=== PATIENT | female | born 1955 | race Caucasian/White ===

== ENCOUNTER 2018-08-10 18:30 | Emergency (ER) | payer OTHER ==
[2018-08-10] MEDS: KETOROLAC 30 MG INJ IM (21:57)
[2018-08-10 22:21] LABS: ADD UMIC YES; UR ASCORBIC ACID NEGATIVE (NEGATIVE); UR BACTERIA FEW /HPF (NONE SEEN); UR BILIRUBIN (Dip) NEGATIVE (NEGATIVE); UR BLOOD (Dip) 2+ mg/dL (NEGATIVE); UR CLARITY SLIGHTLY CLOUDY (CLEAR); UR COLOR YELLOW (YELLOW); UR GLUCOSE (Dip) NEGATIVE (NEGATIVE); UR KETONES (Dip) NEGATIVE (NEGATIVE); UR LEUKOCYTE ESTERASE (Dip) NEGATIVE Leu/ul (NEGATIVE); UR MUCUS MODERATE /HPF (NONE SEEN); UR NITRITE (Dip) NEGATIVE (NEGATIVE); UR RBC 7 /HPF (0-5); UR SPECIFIC GRAVITY (Dip) 1.019 (1.003-1.030); UR SQUAMOUS EPITHELIAL CELL MODERATE /HPF (FEW); UR TOTAL PROTEIN (Dip) 2+ mg/dl (NEGATIVE); UR UROBILINOGEN (Dip) 1+ mg/dL (NEGATIVE); UR WBC 9 /HPF (0-5)
[2018-08-10] MEDS: CEFTRIAXONE 1 GM INJ IM (23:40)
== END 2018-08-10 23:52 | disposition home or self-care (01) ==
LOC: FTE 18:30
DX: N30.00 Acute cystitis without hematuria (principal); Z87.891 Personal history of nicotine dependence
CPT/HCPCS: 81001; 87400; 96372; 99284-25

== ENCOUNTER 2018-09-23 10:12 | Day surgery (SDC) | payer OTHER ==
[2018-09-23] MEDS ORDERED: FENTAnyl 50 MCG/ML VIAL (11:56)
[2018-09-23] MEDS ORDERED: MIDAZOLAM 1 MG/ML 2 ML INJ ×3 (11:56)
== END 2018-09-23 13:22 | disposition home or self-care (01) ==
LOC: GIL 10:12
DX: Z12.11 Encounter for screening for malignant neoplasm of colon (principal); K57.30 Diverticulosis of large intestine without perforation or abscess without bleeding; D12.3 Benign neoplasm of transverse colon; K62.1 Rectal polyp
CPT/HCPCS: 45380; 88305

== ENCOUNTER 2018-11-02 09:56 | Inpatient (IN) | payer OTHER ==
[2018-11-02 13:01] LABS: ABNORMAL IP MESSAGE 1; HEMATOCRIT 20.5 % (37.0-47.0); MEAN CORPUSCULAR HEMOGLOBIN 31.3 pg (29.0-33.0); MEAN CORPUSCULAR HGB CONC 31.7 g/dl (32.0-37.0); MEAN CORPUSCULAR VOLUME 98.6 fl (82.0-101.0); NUCLEATED RED BLOOD CELLS% 0.2 /100WBC (0.0-0.0); PLATELET COUNT 71 10^3/UL (140-415); RED BLOOD COUNT 2.08 10^6/ul (4.20-5.40); RED CELL DISTRIBUTION WIDTH 19.1 % (11.5-14.5)
[2018-11-02 13:01] LABS: WHITE BLOOD COUNT 63.3 10^3/ul (4.8-10.8)
[2018-11-02 13:08] LABS: HEMOGLOBIN 6.5 g/dl (12.0-16.0)
[2018-11-02 13:09] LABS: ADD MAN DIFF? YES; POSITIVE DIFF @See below
[2018-11-02 13:12] LABS: ALANINE AMINOTRANSFERASE 14 IU/L (13-69); ALBUMIN 3.9 g/dl (3.3-4.9); ALBUMIN/GLOBULIN RATIO 1.08; ALKALINE PHOSPHATASE 68 IU/L (42-121); ANION GAP 8 (5-13); ASPARTATE AMINO TRANSFERASE 33 IU/L (15-46); BILIRUBIN,INDIRECT 0.2 mg/dl (0-1.1); BILIRUBIN,TOTAL 0.2 mg/dl (0.2-1.3); BLOOD UREA NITROGEN 12 mg/dl (7-20); CARBON DIOXIDE 32 mmol/L (21-31); CHLORIDE 99 mmol/L (97-110); CREATININE 0.63 mg/dl (0.44-1.00); Estimated GFR > 60 mL/min (>60); GLUCOSE 107 mg/dl (70-220); POTASSIUM 4.1 mmol/L (3.5-5.1); SODIUM 139 mmol/L (135-144); TOTAL PROTEIN 7.5 g/dl (6.1-8.1)
[2018-11-02 13:24] LABS: B-TYPE NATRIURETIC PEPTIDE 253 PG/ML (0-125); TROPONIN-I 0.039 ng/ml (0.000-0.120)
[2018-11-02] MEDS ORDERED: ACETAMINOPHEN 325 MG TAB PO (14:00)
[2018-11-02] MEDS ORDERED: ONDANSETRON 4 MG INJ IV (14:00)
[2018-11-02] MEDS ORDERED: NACL 0.9% 3 ML SYG IV (14:30)
[2018-11-02] MEDS ORDERED: ACETAMINOPHEN 650 MG SUPP PR (14:30)
[2018-11-02] MEDS ORDERED: DOCUSATE SODIUM 100 MG CAP PO (14:30)
[2018-11-02] MEDS ORDERED: MAGNESIUM HYDROXIDE 30ML CUP PO (14:30)
[2018-11-02 14:42] LABS: RETICULOCYTE COUNT # 0.009 X10^6 (0.020-0.110); RETICULOCYTE COUNT % 0.4 % (0.5-1.5)
[2018-11-02 14:42] LABS: RETICULOCYTE RBC 2.04
[2018-11-02 14:50] LABS: IRON 228 ug/dl (35-150)
[2018-11-02 14:59] LABS: % IRON SATURATION 90 % SAT (22-52); TOTAL IRON BINDING CAPACITY 253 ug/dl (241-421)
[2018-11-02 15:01] LABS: ANISOCYTOSIS 3+ (0-0); BAND NEUTROPHILS #M 1.8 10^3/ul (0.0-0.6); BAND NEUTROPHILS % (M) 3 % (0-4); GIANT THROMBO% (M) 1 % (0-0); LYMPHOCYTES #M 15.1 10^3/ul (0.8-2.9); LYMPHOCYTES % (M) 24 % (15-51); METAMYELOCYTES #M 0.6 10^3/ul (0.0-0.0); METAMYELOCYTES %M 1 % (0-0); MICROCYTOSIS 3+ (0-0); MONOCYTE #M 3.1 10^3/ul (0.3-0.9); MONOCYTES % (M) 5 % (0-11); MYELOCYTES #M 1.8 10^3/ul (0.0-0.0); MYELOCYTES % (M) 3 % (0-0); PLATELET ESTIMATE SIG DECREASED; POIKILOCYTOSIS 1+ (0-0); POLYCHROMASIA 3+ (0-0); REACTIVE LYMPHOCYTES #M 3.1 10^3/ul (0.0-0.0); REACTIVE LYMPHOCYTES% (M) 5 % (0-0); SEG NEUT #M 2.4 10^3/ul (1.6-7.5); SEGMENTED NEUTROPHILS (M) % 2 % (39-77); SMUDGE%M 12 % (0-0)
[2018-11-02 16:01] LABS: FOLATE 9.5 ng/ml (2.8-20.0)
[2018-11-02 16:47] LABS: ERYTHROCYTE SEDIMENTATION RATE 90 mm/Hr (0-30)
[2018-11-02 16:53] LABS: LACTATE DEHYDROGENASE 2460 IU/L (313-618)
[2018-11-02] MEDS: SOD CHLORIDE 0.9% 1,000 ML IV (18:17)
[2018-11-03 00:17] LABS: ADD UMIC NO; UR ASCORBIC ACID NEGATIVE (NEGATIVE); UR BILIRUBIN (Dip) NEGATIVE (NEGATIVE); UR BLOOD (Dip) NEGATIVE (NEGATIVE); UR CLARITY CLEAR (CLEAR); UR COLOR YELLOW (YELLOW); UR GLUCOSE (Dip) NEGATIVE (NEGATIVE); UR KETONES (Dip) NEGATIVE (NEGATIVE); UR LEUKOCYTE ESTERASE (Dip) NEGATIVE Leu/ul (NEGATIVE); UR NITRITE (Dip) NEGATIVE (NEGATIVE); UR TOTAL PROTEIN (Dip) NEGATIVE (NEGATIVE); UR UROBILINOGEN (Dip) NEGATIVE (NEGATIVE)
[2018-11-03 05:09] LABS: ABNORMAL IP MESSAGE 1; HEMATOCRIT 21.4 % (37.0-47.0); MEAN CORPUSCULAR HEMOGLOBIN 30.5 pg (29.0-33.0); MEAN CORPUSCULAR HGB CONC 31.3 g/dl (32.0-37.0); MEAN CORPUSCULAR VOLUME 97.3 fl (82.0-101.0); MEAN PLATELET VOLUME 11.9 fl (7.4-10.4); NUCLEATED RED BLOOD CELLS% 0.3 /100WBC (0.0-0.0); PLATELET COUNT 56 10^3/UL (140-415); RED CELL DISTRIBUTION WIDTH 20.4 % (11.5-14.5)
[2018-11-03 05:26] LABS: HEMOGLOBIN A1C 7.6 % (0-5.9)
[2018-11-03 05:26] LABS: HEMOGLOBIN 6.7 g/dl (12.0-16.0)
[2018-11-03 05:27] LABS: ADD MAN DIFF? YES; POSITIVE DIFF @See below
[2018-11-03] MEDS: PANTOPRAZOLE (EC) 40 MG TAB PO (05:53)
[2018-11-03] MEDS: ACETAMINOPHEN 325 MG TAB PO ×2 (05:55→18:15)
[2018-11-03 07:52] LABS: IMMEDIATE SPIN CROSSMATCH 1 2
[2018-11-03 12:00] LABS: ANISOCYTOSIS 1+ (0-0); BAND NEUTROPHILS % (M) 2 % (0-4); BURR CELLS 1+ (0-0); EOSINOPHILS % (M) 1 % (0-7); ERYTHROBLAST% (NRBC) (M) 1 % (0-0); LYMPHOCYTES #M 10.2 10^3/ul (0.8-2.9); LYMPHOCYTES % (M) 19 % (15-51); METAMYELOCYTES %M 2 % (0-0); MICROCYTOSIS 1+ (0-0); MONOCYTES % (M) 13 % (0-11); MYELOCYTES #M 0.5 10^3/ul (0.0-0.0); MYELOCYTES % (M) 1 % (0-0); PLATELET ESTIMATE SIG DECREASED; POLYCHROMASIA 3+ (0-0); REACTIVE LYMPHOCYTES% (M) 2 % (0-0); SMUDGE%M 15 % (0-0)
[2018-11-03 15:48] LABS: HEMATOCRIT 23.9 % (37.0-47.0); HEMOGLOBIN 7.6 g/dl (12.0-16.0)
[2018-11-03] MEDS: FUROSEMIDE 20 MG INJ IV (16:45)
[2018-11-03 18:37] LABS: URIC ACID 8.5 mg/dl (3.1-7.9)
[2018-11-03 18:40] LABS: INR 1.13; PROTIME 14.6 Sec (11.9-14.9); PT RATIO 1.1
[2018-11-03 18:41] LABS: PARTIAL THROMBOPLASTIN TIME 34.4 Sec (23.0-35.0)
[2018-11-03 19:58] LABS: AADO2 Arterial 88.8 mmHg (7.0-24.0); Allen Test ACCEPTAB; Arterial Base Excess 5.5 mmol/L (-3.0-3); Arterial Blood Gas Oxygen Sat 90.5 mmHG (95.0-98.0); Arterial COHb 0.2 % (0.0-3.0); Arterial Fraction of Oxyhgb 89.6 % (93.0-99.0); Arterial HCO3 29.2 mmol/L (22.0-26.0); Arterial MetHb 0.8 % (0.0-1.5); Arterial pCO2 38.9 mmhg (35-45); MODE NASAL CANNULA; Site Right Radial
[2018-11-03] MEDS: CEFTRIAXONE 1 GM/50 ML (PMX) 50 ML IVPB (20:52)
[2018-11-04] MEDS: PANTOPRAZOLE (EC) 40 MG TAB PO (05:12)
[2018-11-04 05:50] LABS: ABNORMAL IP MESSAGE 1; HEMATOCRIT 24.1 % (37.0-47.0); HEMOGLOBIN 7.8 g/dl (12.0-16.0); MEAN CORPUSCULAR HEMOGLOBIN 30.8 pg (29.0-33.0); MEAN CORPUSCULAR HGB CONC 32.4 g/dl (32.0-37.0); MEAN CORPUSCULAR VOLUME 95.3 fl (82.0-101.0); MEAN PLATELET VOLUME 13.2 fl (7.4-10.4); NUCLEATED RED BLOOD CELLS% 0.2 /100WBC (0.0-0.0); PLATELET COUNT 46 10^3/UL (140-415); RED BLOOD COUNT 2.53 10^6/ul (4.20-5.40); RED CELL DISTRIBUTION WIDTH 20.2 % (11.5-14.5)
[2018-11-04 05:50] LABS: WHITE BLOOD COUNT 55.9 10^3/ul (4.8-10.8)
[2018-11-04 05:53] LABS: ADD UMIC YES; UR ASCORBIC ACID NEGATIVE (NEGATIVE); UR BILIRUBIN (Dip) NEGATIVE (NEGATIVE); UR BLOOD (Dip) 1+ mg/dL (NEGATIVE); UR CLARITY CLEAR (CLEAR); UR COLOR YELLOW (YELLOW); UR GLUCOSE (Dip) NEGATIVE (NEGATIVE); UR KETONES (Dip) NEGATIVE (NEGATIVE); UR LEUKOCYTE ESTERASE (Dip) NEGATIVE Leu/ul (NEGATIVE); UR NITRITE (Dip) NEGATIVE (NEGATIVE); UR RBC 0 /HPF (0-5); UR SPECIFIC GRAVITY (Dip) 1.006 (1.003-1.030); UR TOTAL PROTEIN (Dip) NEGATIVE (NEGATIVE); UR UROBILINOGEN (Dip) NEGATIVE (NEGATIVE); UR WBC 1 /HPF (0-5)
[2018-11-04 06:01] LABS: POSITIVE DIFF @See below
[2018-11-04 06:02] LABS: ADD MAN DIFF? YES
[2018-11-04 06:04] LABS: ANION GAP 5 (5-13); BLOOD UREA NITROGEN 9 mg/dl (7-20); CALCIUM 8.4 mg/dl (8.4-10.2); CARBON DIOXIDE 34 mmol/L (21-31); CHLORIDE 101 mmol/L (97-110); CREATININE 0.67 mg/dl (0.44-1.00); Estimated GFR > 60 mL/min (>60); GLUCOSE 112 mg/dl (70-220); POTASSIUM 3.9 mmol/L (3.5-5.1); SODIUM 140 mmol/L (135-144)
[2018-11-04 06:34] LABS: MAGNESIUM 1.6 mg/dl (1.7-2.5)
[2018-11-04 06:34] LABS: PHOSPHORUS 4.6 mg/dl (2.5-4.9)
[2018-11-04 08:25] LABS: PATH REVIEW Yes
[2018-11-04 09:14] LABS: ANISOCYTOSIS 1+ (0-0); HYPOCHROMASIA 1+ (0-0); LYMPHOCYTES #M 9.5 10^3/ul (0.8-2.9); LYMPHOCYTES % (M) 17 % (15-51); MICROCYTOSIS 2+ (0-0); MONOCYTES % (M) 9 % (0-11); MYELOCYTES #M 1.6 10^3/ul (0.0-0.0); MYELOCYTES % (M) 3 % (0-0); PLATELET ESTIMATE DECREASED; PROMYELOCYTES #M 0.5 10^3/ul (0-0); PROMYELOCYTES % (M) 1 % (0-0); SEGMENTED NEUTROPHILS (M) % 8 % (39-77); SMUDGE%M 51 % (0-0)
[2018-11-04] MEDS: ONDANSETRON 4 MG INJ IV (09:44)
[2018-11-04 13:36] LABS: HAPTOGLOBIN 249 mg/dL (43-212)
[2018-11-04] MEDS: CEFEPIME 1GM/50 ML (PMX) 50 ML IVPB (18:07)
[2018-11-04 18:21] LABS: ANA SCREEN POSITIVE (NEGATIVE)
[2018-11-04] MEDS: MAGNESIUM SULFATE 2 GM/50 ML 50 ML IVPB (18:58)
[2018-11-04] MEDS: ACETAMINOPHEN 325 MG TAB PO (19:59)
[2018-11-04 20:43] LABS: ANA PATTERN NUCLEOLAR
[2018-11-04] MEDS ORDERED: VANCOMYCIN IV PER PHARMACY XX (21:00)
[2018-11-04] MEDS: SOD CHLORIDE 0.9% 1,000 ML IV (21:44)
[2018-11-04] MEDS: VANCOMYCIN HCL 2 GM in SOD CHLORIDE 0.9% 500 ML IVPB (22:46)
[2018-11-04 23:29] LABS: LACTIC ACID 1.5 mmol/L (0.5-2.0)
[2018-11-05] MEDS: PANTOPRAZOLE (EC) 40 MG TAB PO (05:12)
[2018-11-05] MEDS: CEFEPIME 1GM/50 ML (PMX) 50 ML IVPB ×2 (05:13→16:10)
[2018-11-05] MEDS: ACETAMINOPHEN 325 MG TAB PO ×3 (05:17→22:50)
[2018-11-05 05:29] LABS: ABNORMAL IP MESSAGE 1; HEMATOCRIT 24.2 % (37.0-47.0); HEMOGLOBIN 7.5 g/dl (12.0-16.0); MEAN CORPUSCULAR HEMOGLOBIN 30.1 pg (29.0-33.0); MEAN CORPUSCULAR VOLUME 97.2 fl (82.0-101.0); MEAN PLATELET VOLUME 13.5 fl (7.4-10.4); NUCLEATED RED BLOOD CELLS% 0.2 /100WBC (0.0-0.0); PLATELET COUNT 44 10^3/UL (140-415); RED BLOOD COUNT 2.49 10^6/ul (4.20-5.40); RED CELL DISTRIBUTION WIDTH 19.9 % (11.5-14.5)
[2018-11-05 05:29] LABS: WHITE BLOOD COUNT 59.2 10^3/ul (4.8-10.8)
[2018-11-05 05:49] LABS: ANION GAP 8 (5-13); BLOOD UREA NITROGEN 12 mg/dl (7-20); CALCIUM 8.5 mg/dl (8.4-10.2); CARBON DIOXIDE 31 mmol/L (21-31); CHLORIDE 101 mmol/L (97-110); CREATININE 0.66 mg/dl (0.44-1.00); Estimated GFR > 60 mL/min (>60); GLUCOSE 117 mg/dl (70-220); POTASSIUM 4.5 mmol/L (3.5-5.1); SODIUM 140 mmol/L (135-144)
[2018-11-05] MEDS: BISACODYL (EC) 5 MG TAB PO (05:56)
[2018-11-05 06:22] LABS: ADD MAN DIFF? YES; POSITIVE DIFF @See below
[2018-11-05] MEDS ORDERED: POLYMYXIN/BACITRACIN 1L IRRIG (07:28)
[2018-11-05 09:45] LABS: ANISOCYTOSIS 1+ (0-0); BAND NEUTROPHILS #M 1.1 10^3/ul (0.0-0.6); BAND NEUTROPHILS % (M) 2 % (0-4); LYMPHOCYTES #M 8.2 10^3/ul (0.8-2.9); LYMPHOCYTES % (M) 14 % (15-51); MICROCYTOSIS 1+ (0-0); MONOCYTE #M 14.2 10^3/ul (0.3-0.9); MONOCYTES % (M) 24 % (0-11); PLATELET ESTIMATE SIG DECREASED; POIKILOCYTOSIS 2+ (0-0); POLYCHROMASIA 1+ (0-0); REACTIVE LYMPHOCYTES #M 3.5 10^3/ul (0.0-0.0); REACTIVE LYMPHOCYTES% (M) 6 % (0-0); SEG NEUT #M 4.2 10^3/ul (1.6-7.5); SEGMENTED NEUTROPHILS (M) % 6 % (39-77); SMUDGE%M 20 % (0-0); SPHEROCYTES 1+ (0-0)
[2018-11-05] MEDS: VANCOMYCIN 1 GM 250 ML IVPB ×2 (11:11→22:51)
[2018-11-05] MEDS ORDERED: HEPARIN 1000 UNITS/ML 10 ML INJ (14:15)
[2018-11-05] MEDS ORDERED: LIDOCAINE 1% (MDV) 20 ML INJ (14:15)
[2018-11-05] MEDS ORDERED: FENTAnyl 50 MCG/ML VIAL (14:16)
[2018-11-05] MEDS ORDERED: MIDAZOLAM 1 MG/ML 2 ML INJ (14:16)
[2018-11-05] MEDS: SOD CHLORIDE 0.9% 1,000 ML IV ×2 (19:37→22:55)
[2018-11-06] MEDS: CEFEPIME 1GM/50 ML (PMX) 50 ML IVPB ×2 (05:31→17:06)
[2018-11-06] MEDS: PANTOPRAZOLE (EC) 40 MG TAB PO (05:33)
[2018-11-06] MEDS: ACETAMINOPHEN 325 MG TAB PO ×2 (05:34→14:01)
[2018-11-06 05:35] LABS: ABNORMAL IP MESSAGE 1; HEMATOCRIT 21.4 % (37.0-47.0); MEAN CORPUSCULAR HEMOGLOBIN 30.3 pg (29.0-33.0); MEAN CORPUSCULAR HGB CONC 31.3 g/dl (32.0-37.0); MEAN CORPUSCULAR VOLUME 96.8 fl (82.0-101.0); NUCLEATED RED BLOOD CELLS% 0.2 /100WBC (0.0-0.0); RED BLOOD COUNT 2.21 10^6/ul (4.20-5.40); RED CELL DISTRIBUTION WIDTH 19.5 % (11.5-14.5)
[2018-11-06] MEDS: ONDANSETRON 4 MG INJ IV (05:37)
[2018-11-06 05:56] LABS: PHOSPHORUS 3.6 mg/dl (2.5-4.9)
[2018-11-06 06:02] LABS: ANION GAP 7 (5-13); BLOOD UREA NITROGEN 10 mg/dl (7-20); CALCIUM 8.2 mg/dl (8.4-10.2); CARBON DIOXIDE 29 mmol/L (21-31); CHLORIDE 105 mmol/L (97-110); CREATININE 0.63 mg/dl (0.44-1.00); Estimated GFR > 60 mL/min (>60); GLUCOSE 126 mg/dl (70-220); POTASSIUM 4.3 mmol/L (3.5-5.1); SODIUM 141 mmol/L (135-144)
[2018-11-06 06:10] LABS: ADD MAN DIFF? YES; POSITIVE DIFF @See below
[2018-11-06 06:14] LABS: HEMOGLOBIN 6.7 g/dl (12.0-16.0)
[2018-11-06 06:15] LABS: PLATELET COUNT 25 10^3/UL (140-415)
[2018-11-06] MEDS: ALLOPURINOL 300 MG TAB PO ×2 (09:00→10:13)
[2018-11-06 09:17] LABS: URIC ACID 6.7 mg/dl (3.1-7.9)
[2018-11-06] MEDS: HYDROXYUREA 500 MG CAP PO (10:16)
[2018-11-06 10:33] LABS: ANISOCYTOSIS 1+ (0-0); LYMPHOCYTES #M 9.7 10^3/ul (0.8-2.9); LYMPHOCYTES % (M) 27 % (15-51); METAMYELOCYTES #M 0.3 10^3/ul (0.0-0.0); METAMYELOCYTES %M 1 % (0-0); MICROCYTOSIS 1+ (0-0); MONOCYTE #M 3.9 10^3/ul (0.3-0.9); MONOCYTES % (M) 11 % (0-11); PLATELET ESTIMATE DECREASED; POLYCHROMASIA 3+ (0-0); REACTIVE LYMPHOCYTES #M 0.7 10^3/ul (0.0-0.0); REACTIVE LYMPHOCYTES% (M) 2 % (0-0); SEGMENTED NEUTROPHILS (M) % 5 % (39-77); SMUDGE%M 28 % (0-0)
[2018-11-06 11:12] LABS: VANCOMYCIN,TROUGH 6.4 ug/ml (10.0-20.0)
[2018-11-06] MEDS: VANCOMYCIN 1 GM 250 ML IVPB ×2 (11:48→20:34)
[2018-11-06] MEDS: SOD CHLORIDE 0.9% 1,000 ML IV (13:00)
[2018-11-06 15:24] LABS: CMV DNA QL SOURCE WHOLE BLOOD
[2018-11-06 20:10] LABS: PLATELET COUNT 18 10^3/UL (140-415)
[2018-11-06 20:23] LABS: INR 1.31; PROTIME 16.4 Sec (11.9-14.9); PT RATIO 1.3
[2018-11-06 20:24] LABS: PARTIAL THROMBOPLASTIN TIME 38.8 Sec (23.0-35.0)
[2018-11-06 20:26] LABS: THROMBIN TIME 15.1 SEC (13.8-19.1)
[2018-11-06 21:16] LABS: D-DIMER > 10000.00 ng/ml (<460)
[2018-11-06 22:45] LABS: TYPE AND SCREEN 1
[2018-11-07] MEDS: ACETAMINOPHEN 325 MG TAB PO (00:31)
[2018-11-07 00:52] LABS: IMMEDIATE SPIN CROSSMATCH 1 2
[2018-11-07 03:54] LABS: PRETRANSFUSION BILIRUBIN 0.5 mg/dl
[2018-11-07 03:55] LABS: POST-TRANSFUSION BILIRUBIN 0.4 mg/dl
== END 2018-11-07 05:23 | disposition short-term general hospital (02) | DRG 835 ==
LOC: E/R 09:56 → 2NE 13:51
PROC: 0JH60WZ Insertion of Totally Implantable Vascular Access Device into Chest Subcutaneous Tissue and Fascia, Open Approach (ICD-10-PCS; principal; 2018-11-05 08:00)
PROC: 02H633Z Insertion of Infusion Device into Right Atrium, Percutaneous Approach (ICD-10-PCS; 2018-11-05 08:00)
PROC: B244ZZZ Ultrasonography of Right Heart (ICD-10-PCS; 2018-11-05 08:00)
PROC: B214YZZ Fluoroscopy of Right Heart using Other Contrast (ICD-10-PCS; 2018-11-05 08:00)
DX: C92.00 Acute myeloblastic leukemia, not having achieved remission (principal); D61.818 Other pancytopenia; Z87.891 Personal history of nicotine dependence; I10 Essential (primary) hypertension; E78.5 Hyperlipidemia, unspecified; Z86.011 Personal history of benign neoplasm of the brain; E66.9 Obesity, unspecified; Z68.37 Body mass index [BMI] 37.0-37.9, adult; R50.81 Fever presenting with conditions classified elsewhere
CPT/HCPCS: 36415; 36430; 36561; 36600; 71045; 74176; 80048; 80053; 80202; 81001; 81003; 82607; 82728; 82746; 82803; 83010; 83036; 83540; 83605; 83615; 83735; 83880; 84100; 84484; 84560; 85014; 85018; 85025; 85045; 85049; 85362; 85378; 85384; 85610; 85651; 85670; 85730; 86038; 86078; 86140; 86644; 86850; 86900; 86901; 86920; 86945; 87040-91; 87086; 87496; 93005; 93306; 99285-25